=== PATIENT | female | born 2000 | race African-American/Black ===

== ENCOUNTER 2020-03-30 11:49 | Emergency (ER) | payer MEDICAID ==
[~2020-03-30] VITALS: Ht 167.6 cm; Wt 57.0 kg
[2020-03-30 13:26] LABS: CHLORIDE 109 mEq/L (98-107)
[2020-03-30 13:32] LABS: CLARITY URINE CLOUDY (CLEAR); COLOR URINE DARK YELLOW (YELLOW); KETONES URINE TRACE (NEGATIVE); LEUKOCYTE ESTERASE URINE 2+ (NEGATIVE); NITRITE URINE POSITIVE (NEGATIVE); OCCULT BLOOD URINE 3+ (NEGATIVE); PH URINE 6.5 (4.5-8.0); PROTEIN URINE 2+ (NEGATIVE); SPECIFIC GRAVITY URINE 1.033 (1.005-1.030)
[2020-03-30 13:38] LABS: B-HCG QUANTITATIVE < 1 mIU/mL (<3)
[2020-03-30 13:42] LABS: HCG SCREEN NEGATIVE
[2020-03-30 13:43] LABS: BASOPHILS % 0.5 % (0.0-2.0); EOSINOPHILS % 1.6 % (0.0-5.0); HEMATOCRIT. 36.4 % (36.0-48.0); HEMOGLOBIN. 12.1 g/dL (12.0-16.0); LYMPHOCYTES % 37.1 % (20.0-50.0); MEAN CORPUSCULAR HEMOGLOBIN 29.4 pg (28.0-32.0); MEAN CORPUSCULAR VOLUME 88.8 fL (81.0-99.0); MEAN PLATELET VOLUME 9.7 fl (7.4-10.4); MONOCYTES % 10.2 % (2.0-8.0); NEUTROPHILS % 50.6 % (40.0-76.0); PLATELET 210 x1000/uL (130-400); RED CELL DISTRIBUTION WIDTH 14.7 % (11.6-14.6)
[2020-03-30 13:54] LABS: INR 1.1; PROTHROMBIN TIME 11.4 sec (9.6-11.0)
[2020-03-30] MEDS ORDERED: IBUPROFEN 600MG TABLET PO ONE (14:30)
[2020-03-30] MEDS ORDERED: CEPHALEXIN 250MG CAPSULE PO ONE (14:30)
[2020-03-30] MEDS ORDERED: MEDROXYPROGESTERONE ACETATE 150MG/ML VIAL IM ONE (14:45)
[2020-03-30 15:07] VITALS: BP 103/64
== END 2020-03-30 15:18 | disposition home or self-care (01) ==
LOC: ER 11:49
DX: N39.0 Urinary tract infection, site not specified (principal); N93.9 Abnormal uterine and vaginal bleeding, unspecified
CPT/HCPCS: 36415; 76830; 76856; 80053; 81003; 81025; 84702; 84703; 85025; 85610; 86850; 86900; 86901; 87077; 87086; 87186; 93005; 99285; J1050

== ENCOUNTER 2025-02-19 09:47 | Emergency (ER) | payer MEDICAID ==
[~2025-02-19] VITALS: Ht 165.1 cm; Wt 58.0 kg
[2025-02-19 09:55] VITALS: TEMP 36.7; O2SAT 100
[2025-02-19 10:54] LABS: CLARITY URINE CLEAR (CLEAR); COLOR URINE YELLOW (YELLOW); GLUCOSE URINE NEGATIVE (NEGATIVE); KETONES URINE TRACE (NEGATIVE); LEUKOCYTE ESTERASE URINE 2+ (NEGATIVE); NITRITE URINE NEGATIVE (NEGATIVE); OCCULT BLOOD URINE NEGATIVE (NEGATIVE); PH URINE 7.0 (4.5-8.0); PROTEIN URINE 1+ (NEGATIVE); SPECIFIC GRAVITY URINE 1.030 (1.005-1.030); UROBILINOGEN URINE 1.0 E.U./dL (0.2-1.0)
[2025-02-19 11:13] LABS: SQUAMOUS EPITHELIAL CELL URINE 2+ /lpf (RARE/1+)
[2025-02-19 11:14] LABS: BACTERIA URINE 1+; RBC URINE 0-2 /hpf (0-2)
[2025-02-19 11:24] LABS: HCG SCREEN NEGATIVE
[2025-02-19] MEDS ORDERED: CLOT21CR VG (12:13)
[2025-02-19] MEDS ORDERED: NITR100C MT (12:13)
[2025-02-19 12:34] VITALS: BP 127/78; PULSE 89; RESP 16; O2SAT 100
[2025-02-21 04:09] LABS: HSV TYPE 2 SPECIFIC AB IGG Reactive (Non Reactive)
[2025-02-21 05:10] LABS: CHLAMYDIA TRACHOMATIS NAA Negative (Negative); NEISSERIA GONORRHOEAE NAA Negative (Negative)
== END 2025-02-19 12:50 | disposition home or self-care (01) ==
LOC: ER 09:47
DX: N39.0 Urinary tract infection, site not specified (principal); B37.9 Candidiasis, unspecified; Z11.3 Encounter for screening for infections with a predominantly sexual mode of transmission; N89.8 Other specified noninflammatory disorders of vagina
CPT/HCPCS: 36415; 81003; 81025; 84703; 86592; 86695; 86696; 87491; 87591; 99284